=== PATIENT | female | born 1990 | race Caucasian/White ===

== ENCOUNTER 2017-06-22 02:35 | Emergency (ER) | payer OTHER ==
[~2017-06-22] VITALS: Ht 157.5 cm; Wt 52.0 kg
[~2017-06-22 02:35] MED LIST: BACT800T5 PO; CIPR500T4 PO
[2017-06-22 02:38] VITALS: BP 136/80; PULSE 130; RESP 16; TEMP 103; O2SAT 99
--- NOTE | 2017-06-22 03:05 | PD ---
HPI Chief Complaint: Fever Time Seen by Provider: 02:42 Travel History International Travel<30 days: Yes Contact w/Intl Traveler<30days: Yes Name of Country Traveled to: [facility] Traveled to known affect area: Yes History of Present Illness HPI The patient is a 27 year old female who presents to the [facility] emergency department with a history of febrile illness that began on the evening of 06/18. She last took tylenol at 2 AM. She last took Motrin at approximately 1 AM. She had a persistent fever with a MAXIMUM TEMPERATURE of 103, but she decided to come to the emergency department for evaluation and treatment. She is visiting for this area for the Holidays. She resides in [place]. She is currently a student and a nurse practitioner program. Her 5-year -old son was recently sick with a viral illness with body aches, however additionally she was recently on a [place] trip to [facility] from 05/30-06/03. She had her Hep A vaccine. She took Milrinone for malarial prophylaxis. She completed the malarial prophylaxis one week after returning. She has some cervical lymphadenopathy reported and a slightly sore throat. She denies having any rashes. She reports having body aches involving her hips, back. She denies having any joint redness or swelling. She denies having any vomiting or diarrhea. On review of systems otherwise, the patient denies having any cough, congestion, neck pain, chest pain, shortness of breath, abdominal pain, urinary symptoms, or neurologic symptoms. LMP: on it currently. PFSH Past Medical History Narrative Medical The patient's past medical history is reportedly none. Diminished Hearing: No Genitourinary: Yes (PYLONEPHRITIS AGE 7) Immunizations Current: Yes Past Surgical History Narrative Surgical The patient's past surgical history is reportedly none. Social History Alcohol Use: No Tobacco Use: No Substance Use: No Allergies-Medications (Allergen,Severity, Reaction): Coded Allergies: No Known Allergies (Unverified Adverse Reaction, Unknown, 06/22/17) Reported Meds & Prescriptions Reported Meds & Active Scripts Active Reported Bactrim DS (Sulfamethoxazole-Trimethoprim DS) 1 Tab Tab 1 Tab PO BID Cipro (Ciprofloxacin HCl) 500 Mg Tab 500 Mg PO BID Review of Systems Except as stated in HPI: all other systems reviewed are Neg General / Constitutional: Positive: Fever Eyes: No: Visual changes HENT: Positive: Sore Throat, No: Headaches, Congestion, Neck Stiffness, Neck Pain Cardiovascular: No: Chest Pain or Discomfort Respiratory: No: Cough, Shortness of Breath Gastrointestinal: No: Abdominal Pain Genitourinary: No: Dysuria Musculoskeletal: Positive: Myalgias, Arthralgias, Pain, No: Limited ROM, Edema Skin: No Rash Neurologic: No: Weakness, Focal Abnormalities, Change in Mentation, Slurred Speech, Sensory Disturbance Psychiatric: No: Depression Endocrine: No: Polydipsia Hematologic/Lymphatic: No: Easy Bruising Physical Exam Narrative General: The patient is a well-developed well-nourished female in no acute distress. Head and Neck exam: Head is normocephalic atraumatic. Eyes: EOMI, pupils are equal round and reactive to light. No scleral icterus. Nose: Midline septum with pink mucous membranes Mouth: Dentition unremarkable. Moist mucus membranes. Posterior oropharynx is erythematous. No tonsillar hypertrophy. No exudates or palatal petechiae. Uvula midline. Airway patent. Neck: No palpable lymphadenopathy. No nuchal rigidity. No thyromegaly. Negative Brudzinski, negative Kernig sign. Cardiovascular: Regular rate and rhythm without murmurs, gallops, or rubs. No pulse deficit to the extremities. Lungs: Clear to auscultation bilaterally. No wheezes, rhonchi, or rales. Abdomen: Soft, without tenderness to palpation in all 4 quadrants of the abdomen. No guarding, rebound, or rigidity. Normal bowel sounds are audible. No tenderness on palpation of McBurney's point. Extremities: No clubbing, cyanosis, or edema. 2+ pulses in all 4 extremities. No calf tenderness on palpation. Back: No spinous process tenderness to palpation. No costovertebral angle tenderness to palpation. Neurologic Exam: Grossly nonfocal. Skin Exam: No rash noted. Intact skin that is warm and dry. Data Data Last Documented VS Vital Signs Date Time Temp Pulse Resp B/P (MAP) Pulse Ox O2 Delivery O2 Flow Rate FiO2 06/22/17 03:22 16 99 Room Air 06/22/17 02:38 103.0 130 Orders Orders Complete Blood Count With Diff (06/22/17 03:01) Comprehensive Metabolic Panel (06/22/17 03:01) Prothrombin Time / Inr (Pt) (06/22/17 03:01) Act Partial Throm Time (Ptt) (06/22/17 03:01) Blood Culture (06/22/17 03:01) C-Reactive Protein (Crp) (06/22/17 03:01) Lipase (06/22/17 03:01) Urinalysis - C+S If Indicated (06/22/17 03:01) Magnesium (Mg) (06/22/17 03:01) Chest, Single Ap (06/22/17 03:01) Iv Access Insert/Monitor (06/22/17 03:01) Ecg Monitoring (06/22/17 03:01) Oximetry (06/22/17 03:01) Ed Urine Pregnancytest Poc (06/22/17 03:01) Lactic Acid Sepsis Protocol (06/22/17 03:01) Sodium Chlor 0.9% 1000 Ml Inj (Ns 1000 M (06/22/17 03:15) Acetaminophen (Tylenol) (06/22/17 03:15) Pathologist Smear Review (06/22/17 03:02) Malaria (06/22/17 03:03) Ibuprofen (Motrin) (06/22/17 03:30) Group A Rapid Strep Screen (06/22/17 03:26) Strep Culture (Group A) (06/22/17 03:27) Labs Laboratory Tests Test 06/22/17 03:15 White Blood Count 8.2 TH/MM3 Red Blood Count 4.78 MIL/MM3 Hemoglobin 14.1 GM/DL Hematocrit 41.8 % Mean Corpuscular Volume 87.5 FL Mean Corpuscular Hemoglobin 29.4 PG Mean Corpuscular Hemoglobin Concent 33.6 % Red Cell Distribution Width 13.9 % Platelet Count 221 TH/MM3 Mean Platelet Volume 8.0 FL Neutrophils (%) (Auto) 80.7 % Lymphocytes (%) (Auto) 8.9 % Monocytes (%) (Auto) 9.0 % Eosinophils (%) (Auto) 1.0 % Basophils (%) (Auto) 0.4 % Neutrophils # (Auto) 6.6 TH/MM3 Lymphocytes # (Auto) 0.7 TH/MM3 Monocytes # (Auto) 0.7 TH/MM3 Eosinophils # (Auto) 0.1 TH/MM3 Basophils # (Auto) 0.0 TH/MM3 CBC Comment DIFF FINAL Differential Comment Blood Smear Pathologist Review Prothrombin Time 10.7 SEC Prothromb Time International Ratio 1.1 RATIO Activated Partial Thromboplast Time 28.0 SEC Urine Color YELLOW Urine Turbidity HAZY Urine pH 5.5 Urine Specific [place] 1.030 Urine Protein TRACE mg/dL Urine Glucose (UA) NEG mg/dL Urine Ketones NEG mg/dL Urine Occult Blood MOD Urine Nitrite NEG Urine Bilirubin NEG Urine Urobilinogen 2.0 MG/DL Urine Leukocyte Esterase TRACE Urine RBC 1 /hpf Urine WBC 2 /hpf Urine Squamous Epithelial Cells 4 /hpf Urine Bacteria RARE /hpf Urine Hyaline Casts 1 /lpf Urine Mucus FEW /lpf Microscopic Urinalysis Comment CULT NOT INDICATED Blood Urea Nitrogen 10 MG/DL Creatinine 0.78 MG/DL Random Glucose 113 MG/DL Total Protein 7.9 GM/DL Albumin 4.1 GM/DL Calcium Level 9.2 MG/DL Magnesium Level 1.8 MG/DL Alkaline Phosphatase 49 U/L Aspartate Amino Transf (AST/SGOT) 20 U/L Alanine Aminotransferase (ALT/SGPT) 16 U/L Total Bilirubin 0.5 MG/DL Sodium Level 139 MEQ/L Potassium Level 3.4 MEQ/L Chloride Level 106 MEQ/L Carbon Dioxide Level 24.6 MEQ/L Anion Gap 8 MEQ/L Estimat Glomerular Filtration Rate 89 ML/MIN Lactic Acid Level 1.0 mmol/L C-Reactive Protein 2.43 MG/DL Lipase 285 U/L [facility] Medical Decision Making Medical Screen Exam Complete: Yes Emergency Medical Condition: Yes Medical Record Reviewed: Yes Interpretation(s) Last Impressions Chest X-Ray 06/22/17 0301 Signed Impressions: Service Date/Time: Thursday, June 22, 2017 03:27 - CONCLUSION: No acute cardiopulmonary disease identified. Markus French MD Differential Diagnosis Strep pharyngitis, versus dengue fever, versus malaria, versus viral syndrome, versus influenza Narrative Course During the course of the patients emergency department visit, the patients history, examination, and differential diagnosis were reviewed with the patient. The patient was placed on a classroom monitor with oximetry and frequent blood pressure monitoring. The patient had IV access obtained and blood work sent for analysis. The patient was initially provided normal saline 1 L IV fluid bolus, Motrin 400 mg by mouth 1. The patients laboratory studies were reviewed and remarkable for a white count of 8.2, hemoglobin 14.1, platelets 221 with 80.7 neutrophils, lymphocytes 8.9, monocytes 9, CMP is all per potassium of 3.4, glucose 113, C-reactive protein 2.43, lactic acid 1.0, lipase 285, PT PTT within normal limits, urinalysis shows moderate occult blood, however the patient is currently on her menstrual cycle. Rapid strep test is negative. Radiology studies were reviewed and remarkable for a chest x-ray shows no acute cardiopulmonary disease. Given the fact that the patient was treated with malaria prophylaxis, I doubt that the patient has malaria, however the peripheral smear has been sent for pathology to rule this out. Given the patient's monocytosis, I suspect that the patient's symptoms are related to a viral illness. The patient is instructed regarding pushing fluids and getting plenty of rest. The patient is instructed regarding alternating Tylenol with Motrin for fever. She is instructed regarding the importance of close follow-up with her primary care physician. She is instructed to follow back up immediately in the emergency department if she develops any new or worsening signs or symptoms. The patient is resting comfortably and feels better, is alert and in no distress. The patients results and examination findings were discussed with the patient. The repeat examination is unremarkable and benign. The history, exam, diagnostic testing, and current condition do not suggest any significant pathology to warrant further testing, continued ED treatment, admission, or surgical evaluation at this point. The vital signs have been stable. The patient does not have uncontrollable pain, intractable vomiting, or other significant symptoms. The patient's condition is stable and appropriate for discharge. The patient will pursue further outpatient evaluation with a primary care physician or other designated or consulting physician as indicated in the discharge instructions. The patient expressed understanding and was agreeable with this plan. Diagnosis Primary Impression: Febrile illness Additional Impression: Viral syndrome Referrals: Primary Care Physician 3 days Patient Instructions: General Instructions, Viral Syndrome (ED) Med/Other Pt SpecificInfo: No Meds Exist/No RX given Disposition: 01 DISCHARGE HOME Condition: Stable Kristyn Aguila MD Jun 22, 2017 03:05
[2017-06-22] MEDS ORDERED: SODIUM CHLOR 0.9% 1000 ML INJ 1,000 ML IV ONE (03:15)
[2017-06-22] MEDS ORDERED: ACETAMINOPHEN 325 MG TAB PO ONE (03:15)
[2017-06-22 03:22] VITALS: RESP 16; O2SAT 99
[2017-06-22] MEDS ORDERED: IBUPROFEN 400 MG TAB PO ONE (03:30)
[2017-06-22 03:31] LABS: AUTOMATED NEUTROPHIL # 6.6 TH/MM3 (1.8-7.7); BACTERIA, URINE RARE /hpf; BASOPHIL % 0.4 % (0.0-2.0); BILIRUBIN, URINE NEG (NEG); BLOOD, URINE MOD (NEG); EOSINOPHIL # 0.1 TH/MM3 (0-0.4); GLUCOSE,URINE NEG (NEG); HEMATOCRIT 41.8 % (35.0-46.0); HEMOGLOBIN 14.1 GM/DL (11.6-15.3); HYALINE CAST, URINE 1 /lpf (RARE); KETONE, URINE NEG (NEG); LYMPH % 8.9 % (9.0-44.0); LYMPHOCYTE # 0.7 TH/MM3 (1.0-4.8); MEAN CELL VOLUME 87.5 FL (80.0-100.0); MEAN CORPUSCULAR HEMOGLOBIN 29.4 PG (27.0-34.0); MEAN CORPUSCULAR HGB CONC 33.6 % (32.0-36.0); MONOCYTE # 0.7 TH/MM3 (0-0.9); MUCUS URINE FEW /lpf (OCC); NEUT % 80.7 % (16.0-70.0); NITRITE,URINE NEG (NEG); PH, URINE 5.5 (5.0-8.5); PLATELET COUNT 221 TH/MM3 (150-450); RED BLOOD COUNT 4.78 MIL/MM3 (4.00-5.30); RED CELL DISTRIBUTION WIDTH 13.9 % (11.6-17.2); SQUAMOUS EPITHELIAL CELL URINE 4 /hpf (0-5); URINE COLOR YELLOW (YELLW/STRAW); URINE LEUKOCYTE ESTERASE TRACE (NEG); WHITE BLOOD COUNT 8.2 TH/MM3 (4.0-11.0)
--- NOTE | 2017-06-22 03:39 | RADRPT ---
EXAM DATE/TIME: 06/22/2017 03:27 PRITESH RIOS Macro MR ON: No previous studies available for comparison. INDICATIONS : Cough and fever MEDICAL HISTORY : None. SURGICAL HISTORY : None. ENCOUNTER: Initial ACUITY: 1 day PAIN SCORE: 6/10 LOCATION: Bilateral chest FINDINGS: Single AP view of the chest. The lungs are clear. Cardiomediastinal silhouette within normal limits. No evidence of pleural effusion or pneumothorax. CONCLUSION: No acute cardiopulmonary disease identified. Markus French MD on June 22, 2017 at 3:37 Board Certified Radiologist. This report was verified electronically.
[2017-06-22 03:47] LABS: INTERNATIONAL NORMALIZED RATIO 1.1 RATIO; PROTHROMBIN TIME - PATIENT 10.7 SEC (9.8-11.6)
[2017-06-22 04:31] LABS: ALBUMIN 4.1 GM/DL (3.4-5.0); ALT (GPT) 16 U/L (10-53); AST (GOT) 20 U/L (15-37); BICARBONATE 24.6 MEQ/L (21.0-32.0); BLOOD UREA NITROGEN 10 MG/DL (7-18); C-REACTIVE PROTEIN 2.43 MG/DL (0.00-0.30); CALCIUM 9.2 MG/DL (8.5-10.1); CHLORIDE 106 MEQ/L (98-107); CREATININE 0.78 MG/DL (0.50-1.00); GLOMERULAR FILTRATION RATE 89 ML/MIN (>89); GLUCOSE,RANDOM 113 MG/DL (74-106); LIPASE 285 U/L (73-393); MAGNESIUM 1.8 MG/DL (1.5-2.5); SODIUM (NA) 139 MEQ/L (136-145)
[2017-06-22 04:34] LABS: ALKALINE PHOSPHATASE 49 U/L (45-117); TOTAL BILIRUBIN ADULT 0.5 MG/DL (0.2-1.0); TOTAL PROTEIN 7.9 GM/DL (6.4-8.2)
[2017-06-22 05:55] VITALS: BP 131/77; PULSE 105; RESP 18; TEMP 98.9; O2SAT 99
== END 2017-06-22 05:58 | disposition home or self-care (01) ==
LOC: NEPE 02:35
DX: B34.9 Viral infection, unspecified (principal)
CPT/HCPCS: 71010; 80053; 81001; 83605; 83690; 83735; 84703; 85025; 85060; 85610; 85730; 86140; 87015; 87040; 87081; 87207; 87880; 96360; 99284; J7030